=== PATIENT | male | born 1995 ===

== ENCOUNTER 2021-01-10 12:03 | Day surgery (SDC) | payer BC ==
[~2021-01-10 12:03] MED LIST: Ketamine 500 mg/10 ML MDV ONE; Midazolam 1 MG/ML 2 ML SDV ONE; Propofol 200 MG/20 ML SDV ONE
[2021-01-10] MEDS ORDERED: Sodium Chloride 0.9% 10 ML Syringe FLUSH PRN (12:15)
[2021-01-10] MEDS ORDERED: Lactated Ringers 1,000 ML IV SCH (12:15)
[2021-01-10] MEDS ORDERED: Propofol 200 MG/20 ML SDV ONE ×2 (13:16→13:24)
[2021-01-10] MEDS ORDERED: Midazolam 1 MG/ML 2 ML SDV ONE (13:24)
[2021-01-10] MEDS ORDERED: Ketamine 500 mg/10 ML MDV ONE (13:24)
[2021-01-10] MEDS ORDERED: Lidocaine 2% 5 ML SDV ONE (13:24)
--- NOTE | 2021-01-10 13:36 | PCM.OPNOTE ---
- General Post-Op/Procedure Note Date of Surgery/Procedure: 01/10/21 Operative Procedure(s): EGD with Bx Findings: Normal Pre Op Diagnosis: GERD Post-Op Diagnosis: Same Anesthesia Technique: MAC Primary Surgeon: Dwaine Ceja Anesthesia Provider: Zaira Carson Complications: None Condition: Good
--- NOTE | 2021-01-11 08:07 | OR ---
Date of Procedure: 01/10/2021 PREOPERATIVE DIAGNOSIS: Gastroesophageal reflux disease refractory to medication. POSTOPERATIVE DIAGNOSIS: Normal esophagogastroduodenoscopy. PROCEDURE: Esophagogastroduodenoscopy. ANESTHESIA: IV sedation. DESCRIPTION OF PROCEDURE: Patient was brought to the procedure room, where he was placed on his left side and IV sedation administered. Oral bite block was placed and the upper endoscope advanced into the esophagus under direct vision without difficulty. The scope was advanced to the 3rd portion of the duodenum. Duodenum and pylorus were normal. Antrum and body of the stomach were normal. Retroflexion reveals a normal-appearing fundus. There was no hiatal hernia. Squamocolumnar junction appears normal. I do not see any evidence of esophagitis, erosions, ulcerations, or other abnormalities. I did take 2 biopsies from the distal esophagus because of these symptoms. Air was removed from the stomach and the scope withdrawn through the remaining esophagus, which appears normal. The patient tolerated the procedure well and returned to recovery in stable condition. I will have the patient follow up with Dr. Bolden next week for review of pathology report. KATLYN MENA MD /[id number]
== END 2021-01-10 14:27 | disposition home or self-care (01) ==
LOC: LL.SDS 12:03
PROVIDERS: ATTEND Surgery
DX: K21.00 Gastro-esophageal reflux disease with esophagitis, without bleeding (principal); K29.00 Acute gastritis without bleeding; K31.89 Other diseases of stomach and duodenum; Z91.030 Bee allergy status; Z87.891 Personal history of nicotine dependence
CPT/HCPCS: 00731; J2250; J2704; J7120

== ENCOUNTER 2022-01-23 10:32 | Emergency (ER) | payer BC ==
[2022-01-23 11:29] LABS: CHLORIDE,CL 101 mmol/L (98-107); SODIUM,NA 137 mmol/L (136-145)
[2022-01-23 11:30] LABS: ESTIMATED GFR 101 mL/min (>=60)
[2022-01-23] MEDS ORDERED: cefTRIAXone 1 GM Vial IM ONE (11:38)
[2022-01-23] MEDS ORDERED: Lidocaine 1% 5 ML VIAL INJECT ONE (11:42)
== END 2022-01-23 12:06 | disposition home or self-care (01) ==
LOC: LL.ED 10:32
DX: J02.0 Streptococcal pharyngitis (principal); Z79.899 Other long term (current) drug therapy; Z91.030 Bee allergy status
CPT/HCPCS: 36415; 80053; 85025; 87430; 96372; 99283; J0696